=== PATIENT | male | born 1960 | race Caucasian/White ===

== ENCOUNTER 2016-05-24 14:53 | Day surgery (SDC) | payer MEDICARE ==
[~2016-05-24 14:53] MED LIST: Kenalog-40 IJ ONE; Sensorcaine 0.25% 10 ML IJ ONE
[2016-05-24 17:28] VITALS: BP 155/88; PULSE 85; O2SAT 96
--- NOTE | 2016-05-24 21:05 | XRAY ---
Indication: Bilateral L2-L5 MBB. Intraoperative fluoroscopy was provided for 21 seconds. 1 digital spot image submitted for interpretation demonstrates posterior spinal needles with the tips projecting over the expected course of the left and right L2-L5 nerve roots. Correlate with intraoperative findings/report.
--- NOTE | 2016-05-25 08:43 | XRAY ---
21 seconds fluoroscopy time in surgery for LMBB bilaterally.
== END 2016-05-24 19:29 | disposition home or self-care (01) ==
LOC: SDC-PAIN 14:53
PROVIDERS: ATTEND Pain Medicine Interventional Pain Medicine
DX: M47.816 Spondylosis without myelopathy or radiculopathy, lumbar region (principal); M54.5 Low back pain; Z79.891 Long term (current) use of opiate analgesic
CPT/HCPCS: 64493; 64494; 64495; 72020; 77003; J3301

== ENCOUNTER 2016-07-19 11:00 | Day surgery (SDC) | payer MEDICARE ==
[~2016-07-19 11:00] MED LIST changes: +DIPRIVAN 200 MG/20 ML IV ONE; -Kenalog-40 IJ ONE; +SUBLIMAZE 100 MCG/2 ML IV ONE; -Sensorcaine 0.25% 10 ML IJ ONE
--- NOTE | 2016-07-19 14:23 | XRAY ---
Indication: Right L2-L5 RFA. Intraoperative fluoroscopy was provided for 33 seconds. 2 digital spot images submitted for interpretation demonstrates 4 posterior spinal needles with the tips projecting adjacent to the right L3-S1 superior facets. Correlate with intraoperative findings/report.
[2016-07-19] MEDS ORDERED: Lactated Ringers IV ONE (15:16)
[2016-07-19] MEDS ORDERED: Kenalog-40 IM ONE (15:16)
[2016-07-19] MEDS ORDERED: Sensorcaine 0.25% 10 ML IJ ONE (15:16)
[2016-07-19] MEDS ORDERED: KEFZOL 1 GM IV ONE (15:16)
[2016-07-19] MEDS ORDERED: Xylocaine 1% Vial 30 ML PF IJ ONE (15:16)
--- NOTE | 2016-07-19 16:36 | XRAY ---
33 seconds of fluoroscopy was used in surgery for a right RFA L2-L5.
== END 2016-07-19 14:05 | disposition home or self-care (01) ==
LOC: SDC-PAIN 11:00
PROVIDERS: ATTEND Pain Medicine Interventional Pain Medicine
DX: M47.816 Spondylosis without myelopathy or radiculopathy, lumbar region (principal); M54.5 Low back pain; Z79.891 Long term (current) use of opiate analgesic
CPT/HCPCS: 64635; 64636; 72100; 77003; J0690; J2001; J2704; J3010; J3301

== ENCOUNTER 2016-08-23 10:57 | Day surgery (SDC) | payer MEDICARE ==
[~2016-08-23 10:57] MED LIST changes: +KEFZOL 1 GM/50 ML PREMIX** 50 ML IV ONE; +Kenalog-40 IM ONE; +Lactated Ringers 1,000 ML IV ONE; +Sensorcaine 0.25% 10 ML IJ ONE; +Xylocaine 1% Vial 30 ML PF IJ ONE
--- NOTE | 2016-08-23 16:35 | XRAY ---
Indication: Left L2-L5 RFA. Intraoperative fluoroscopy was provided for 29 seconds. 2 digital spot image submitted for interpretation demonstrates posterior spinal needles with the tips projecting over the expected course of the left L2-L5 nerve roots. Correlate with intraoperative findings/report.
--- NOTE | 2016-08-23 17:01 | XRAY ---
29 seconds fluoroscopy time in surgery for left L2-5 RFA.
== END 2016-08-23 14:45 | disposition home or self-care (01) ==
LOC: SDC-PAIN 10:57
PROVIDERS: ATTEND Pain Medicine Interventional Pain Medicine
DX: M47.816 Spondylosis without myelopathy or radiculopathy, lumbar region (principal); M54.5 Low back pain; Z79.891 Long term (current) use of opiate analgesic
CPT/HCPCS: 64635; 64636; 72100; 77003; J0690; J2001; J2704; J3010; J3301